=== PATIENT | male | born 1965 | race Caucasian/White ===

== ENCOUNTER 2017-01-19 08:05 | Emergency (ER) | payer MEDICARE, BC ==
[~2017-01-19] VITALS: Ht 170.2 cm; Wt 81.3 kg
[~2017-01-19 08:05] MED LIST: MEDICAL MARIJUANA
[2017-01-19 08:13] VITALS: Ht 170.2 cm; Wt 81.3 kg
--- NOTE | 2017-01-19 09:42 | RADRPT ---
PROCEDURE: XR Chest. CLINICAL INDICATION: chest pain, cough TECHNIQUE: Single frontal view of the chest was obtained COMPARISON: None FINDINGS: The heart and mediastinum are within normal limits. There is a small right pleural effusion. There is no focal consolidation. There is no pneumothorax. RPTAT: AA IMPRESSION: Small right pleural effusion. .Stanislaw Anthony MD, MD Date Time Electronically viewed and signed by .Stanislaw Anthony MD, MD on 01/19/2017 09:42 .S/
[2017-01-19] MEDS ORDERED: AZIT250T94 PO (11:00)
--- NOTE | 2017-01-19 14:43 | ERD ---
DATE OF SERVICE: HISTORY OF PRESENT ILLNESS: The patient is a 52-year-old male coming in complaining of pain everywh ere. The patient is also complaining of a cough. He states it's ____ productive cough. He has no hemoptysis, no pleuritic chest pain, no fevers. He has a mild sore throat and runny nose. He has h ad no fevers at home but states he has been "feeling hot." He has not checked if it's fever. He dominguez s no sick contacts. PAST MEDICAL HISTORY: Denies medical problems. ALLERGIES TO MEDICATION: DENIES. SURGICAL HISTORY: Denies. SOCIAL HISTORY: Smokes half pack of cigarettes a day. REVIEW OF SYSTEMS: A 12-point review of systems was done. Refer to HPI for positives, all other sy stems negative. PHYSICAL EXAMINATION: VITAL SIGNS: Temperature 97.1, pulse 88, blood pressure is 142/96, respiratory 16, O2 saturation 97 % on room air. Pain intensity 9/10. GENERAL: The patient is well appearing, well nourished. No acute distress. HEART: Regular rate and rhythm. No murmurs, clicks, rubs or gallops. No S3 or S4. CHEST: Clear to auscultation bilaterally. There are no rales, wheezes or rhonchi. HEENT: Atraumatic. Conjunctivae are pink. Pupils equal, round, and reactive to light. There is n o scleral icterus. Tympanic membranes clear bilaterally. Oropharynx clear. No nystagmus or photop hobia. ABDOMEN: Soft, nontender and nondistended. Good bowel sounds. No rebound or guarding. No gross p eritonitis. No gross organomegaly or masses. No Garner sign or McBurney point tenderness. SKIN: There is no apparent rash or petechia. The skin is warm and dry. EMERGENCY ROOM COURSE: The patient had a 1-view chest x-ray done in the ER which showed a small rig ht pleural effusion. DIAGNOSIS: Cough. MEDICAL DECISION MAKING: I have low suspicion for PE. The patient is not tachycardic. He does not have pleuritic chest pain. No hemoptysis. I did not feel there was indication for further workup at this time or CTPA. I have low suspicion for cardiac abnormality, low suspicion for bacterial men ingitis or sepsis, low suspicion for bacterial HEENT infection. The patient's exam is not concernin g. The patient likely has viral cough, but given that he has had productive sputum and smokes, I wi ll give antibiotics. DISCHARGE: The patient is discharged stable. The patient is given prescription for azithromycin, t old to follow up with primary care within 1 to 2 days for re-evaluation. The patient is told if sym ptoms progress or worsen to return to the ER. All other questions answered at time of discharge. D ischarge summary given at time of departure. The patient understood and complied with plan. Dictated By: TATUM AGUAYO for ROBER ZHAO/JOON Conf#: [id number] DID#: [id number]
== END 2017-01-19 11:00 | disposition home or self-care (01) ==
LOC: FTE 08:05
DX: R05 Cough (principal); F17.210 Nicotine dependence, cigarettes, uncomplicated
CPT/HCPCS: 71010

== ENCOUNTER 2017-02-07 18:25 | Emergency (ER) | payer MEDICARE, BC ==
[~2017-02-07] VITALS: Wt 80.5 kg
[~2017-02-07 18:25] MED LIST changes: +AZIT250T94 PO
[2017-02-07] MEDS ORDERED: ALBUTEROL 0.5% (NEB) 2.5 MG/0.5 ML AMP INH STA (20:38)
[2017-02-07] MEDS ORDERED: ALBU8.5H3 INH (20:41)
[2017-02-07] MEDS ORDERED: AZIT500T3 PO (20:41)
--- NOTE | 2017-02-07 21:19 | RADRPT ---
PROCEDURE: XR Chest. CLINICAL INDICATION: Shortness of breath. TECHNIQUE: Single frontal view. COMPARISON: 01/19/2017. FINDINGS: The lungs are clear. The heart size is normal. There is a small right pleural effusion. There is no left pleural effusion. There is no pneumothorax. IMPRESSION: 1. Small right pleural effusion. 2. Otherwise normal chest radiograph. RPTAT: QQ .Kian Mckeon MD, MD Date Time Electronically viewed and signed by .Kian Mckeon MD, MD on 02/07/2017 21:19 .R/
--- NOTE | 2017-02-07 22:42 | ERD ---
ER Documentation Chief Complaint Date/Time DATE: 02/07/17 TIME: 22:40 Chief Complaint cough HPI 52-year-old homeless tobacco smoker presents with cough 3 weeks. He denies recent imaging or antibiotic therapy. Patient denies fevers or chills, no chest pain or shortness of breath, no calf or leg swelling, no vomiting or diarrhea. Patient denies abdominal pain. ROS All systems reviewed and are negative except as per history of present illness. Medications Home Meds Active Scripts Azithromycin* (Zithromax*) 500 Mg Tablet, 500 MG PO DAILY for 5 Days, TAB Prov:SOBEIDA BACA MD 02/07/17 Albuterol Sulfate* (Proair HFA*) 8.5 Gm Hfa.aer.ad, 2 PUFF INH Q6H Y for WHEEZING AND SOB, #1 INHALER Prov:SOBEIDA BACA MD 02/07/17 Azithromycin* (Zithromax*) 250 Mg Tablet, 250 MG PO .ZPACK DIRECTED, #6 TAB TAKE 500 MG (2 TABS) THE FIRST DAY THEN 250 MG (1 TAB) DAYS 2-5 Prov:ANA WATKINS PA-C 01/19/17 Reported Medications [Medical Marijuana] No Conflict Check 10/23/10 Allergies Allergies: Coded Allergies: No Known Drug Allergies (Verified Allergy, Mild, 10/23/10) PMhx/Soc Early COPD and tobacco smoke Medical and Surgical Hx: pt denies Medical Hx History of Surgery: Yes (1980 CORNER OF RIGHT LUNG REMOVED S/P INHALING A WOODEN SCREW) Anesthesia Reaction: No Hx Neurological Disorder: No Hx Respiratory Disorders: No Hx Cardiac Disorders: No Hx Psychiatric Problems: Yes (ADHD PER PT) Hx Miscellaneous Medical Probl: No Hx Alcohol Use: Yes Hx Substance Use: Yes Hx Tobacco Use: Yes Smoking Status: Never smoker FmHx Family History: No diabetes Physical Exam Vitals Vital Signs Date Time Temp Pulse Resp B/P Pulse Ox O2 Delivery O2 Flow Rate FiO2 02/07/17 21:18 86 22 97 21 02/07/17 19:27 98.4 79 20 165/92 97 Physical Exam GENERAL: Well-developed, well-nourished, well-hydrated, in no apparent distress , looks nontoxic in appearance HEENT: Moist mucous membranes, pink conjunctiva, no cervical spine tenderness or step-off deformities, no goiter, no jaundice or icterus, extraocular movements intact without pain. No submandibular induration, and no pharyngeal erythema NEURO: Alert and oriented 3, cranial nerves II through XII intact bilaterally, pupils equal round reactive to light, no focal deficits or facial asymmetry, sensation intact distally Strength 5/5 in upper and lower extremities bilaterally CARDIAC: Regular rate and rhythm, no murmurs rubs or gallops LUNGS: Clear bilaterally no wheezing crackles or stridor ABDOMEN: Soft nontender, no guarding, no rigidity, no rebound, no psoas sign no obturator sign. Normoactive bowel sounds SKIN: Warm and dry to touch, no abrasions, contusions, or hematomas, no lacerations, no ecchymosis, no target lesions, and without ulcers EXTREMITIES: No clubbing cyanosis or edema, calves are bilaterally symmetrical, no Homans sign, no popliteal cord sign. Distal pulses equal and bilateral PSYCH: Normal affect without agitation or irritability Results 24 hrs Current Medications Medications (Trade) Dose Ordered Sig/Conor Route PRN Reason Start Time Stop Time Status Last Admin Dose Admin Albuterol (Proventil 0.5% (Neb)) 5 mg ONCE STAT INH 02/07/17 20:38 02/07/17 20:39 DC 02/07/17 21:17 Procedures/MDM Chest X-ray 1V Interpreted by me: Soft Tissue: No acute abnormalities Bones: No acute abnormalities Mediastinum/Cardiac Silhouette/Lungs: No acute abnormalities I administered albuterol 5 mg via nebulizer with good effect. For half minutes of tobacco cessation counseling was provided to this patient. Differential diagnoses considered, included but not limited to acute coronary syndrome, pulmonary embolism, aortic dissection, abdominal aortic aneurysm, sepsis, stroke, meningitis, encephalitis, pneumonia, appendicitis, cholecystitis , bowel obstruction, pyelonephritis, nephrolithiasis, cystitis, as well as metabolic, hematologic, and electrolyte abnormalities. As well as abscess, cellulitis, fractures, and dislocations. Patient feels much better at this time, and vital signs are normal, symptoms have improved. I did give strict instructions to return to the ED if symptoms continue or worsen, patient will otherwise follow-up with primary care physician. Patient understood instructions and agreed to plan. Departure Diagnosis: Primary Impression: Bronchitis Condition: Good Patient Instructions: Bronchitis With Wheezing (Adult) SOBEIDA BACA MD Feb 07, 2017 22:42
[2017-02-07 23:30] VITALS: BP 160/90; PULSE 80; RESP 20; TEMP 98.4
== END 2017-02-07 23:30 | disposition home or self-care (01) ==
LOC: FTE 18:25
DX: J20.9 Acute bronchitis, unspecified (principal); F17.210 Nicotine dependence, cigarettes, uncomplicated
CPT/HCPCS: 71010; 94644

== ENCOUNTER 2017-03-10 13:00 | Day surgery (SDC) | payer MEDICARE, BC ==
[~2017-03-10 13:00] MED LIST changes: +ALBU8.5H3 INH; +AZIT500T3 PO
== END 2017-03-10 15:15 | disposition home or self-care (01) ==
LOC: GIL 13:00
PROVIDERS: ATTEND Internal Medicine Gastroenterology
DX: Z12.11 Encounter for screening for malignant neoplasm of colon (principal); Z53.9 Procedure and treatment not carried out, unspecified reason

== ENCOUNTER 2017-04-05 06:55 | Emergency (ER) | payer MEDICARE, BC ==
[~2017-04-05] VITALS: Ht 170.2 cm; Wt 75.0 kg
[2017-04-05 07:01] VITALS: Ht 170.2 cm; Wt 75.0 kg
[2017-04-05] MEDS ORDERED: LIDOCAINE/MYLANTA 40 ML BTL PO STA (07:37)
[2017-04-05 07:53] LABS: ADD SCAN DIFF NO
[2017-04-05 08:00] LABS: BASOPHIL # 0.1 10^3/ul (0.0-0.1); BASOPHILS % 0.9 % (0.0-2.0); EOSINOPHILS # 0.2 10^3/ul (0.0-0.5); EOSINOPHILS % 2.5 % (0.0-7.0); HEMATOCRIT 51.6 % (42.0-52.0); HEMOGLOBIN 16.9 g/dl (14.0-18.0); LYMPHOCYTES # 1.1 10^3/ul (0.8-2.9); LYMPHOCYTES % 15.5 % (15.0-51.0); MEAN CORPUSCULAR HEMOGLOBIN 29.9 pg (29.0-33.0); MEAN CORPUSCULAR HGB CONC 32.8 g/dl (32.0-37.0); MEAN CORPUSCULAR VOLUME 91.3 fl (82.0-101.0); MEAN PLATELET VOLUME 9.9 fl (7.4-10.4); MONOCYTE # 0.6 10^3/ul (0.3-0.9); MONOCYTES % 9.1 % (0.0-11.0); NEUTROPHIL # 4.9 10^3/ul (1.6-7.5); NEUTROPHILS % 71.7 % (39.0-77.0); PLATELET COUNT 222 10^3/UL (140-415); RED BLOOD COUNT 5.65 10^6/ul (4.70-6.10); RED CELL DISTRIBUTION WIDTH 12.4 % (11.5-14.5); WHITE BLOOD COUNT 6.8 10^3/ul (4.8-10.8)
[2017-04-05] MEDS ORDERED: PANTOPRAZOLE (EC) 40 MG TAB PO ONE (08:00)
[2017-04-05 08:14] LABS: ALBUMIN 3.3 g/dl (3.3-4.9)
[2017-04-05 08:15] LABS: POTASSIUM 3.7 mmol/L (3.5-5.1)
--- NOTE | 2017-04-05 08:16 | RADRPT ---
PROCEDURE: Abdominal Ultrasound (right upper quadrant). CLINICAL INDICATION: Abdominal pain TECHNIQUE: Multiple real-time longitudinal and transverse images of the right upper quadrant of th e abdomen were acquired utilizing a curved array transducer. Images were reviewed on a high-resoluti on PACS workstation. COMPARISON: None FINDINGS: The liver is normal in size and echogenicity. No focal masses are identified. There is no evidenc e of intra or extrahepatic ductal dilatation. The common bile duct measures 4.5 mm in diameter. No gallstones or gallbladder wall thickening is seen. The visualized portions of the pancreas are unremarkable with obscuration of the tail of the pancrea s. No free fluid is identified. There is no evidence of right hydronephrosis or renal calcification. The right kidney measures 10.9 cm in length. The visualized portions of the aorta and inferior vena cava are within normal limits. IMPRESSION: 1. Unremarkable right upper quadrant ultrasound. RPTAT: HJBF .Edis Walker MD, MD Date Time Electronically viewed and signed by .Edis Walker MD, MD on 04/05/2017 08:16 .B/
[2017-04-05 08:17] LABS: ALBUMIN/GLOBULIN RATIO 1.17; BILIRUBIN,INDIRECT 0.5 mg/dl (0-1.1); BILIRUBIN,TOTAL 0.5 mg/dl (0.2-1.3); CREATININE 0.82 mg/dl (0.61-1.24); TOTAL PROTEIN 6.1 g/dl (6.1-8.1)
[2017-04-05 08:18] LABS: CALCIUM 8.8 mg/dl (8.4-10.2)
[2017-04-05] MEDS ORDERED: PANT40TA3 PO (08:38)
[2017-04-05 08:39] VITALS: BP 133/79; PULSE 79; RESP 19
--- NOTE | 2017-04-05 08:46 | ERD ---
ER Documentation Chief Complaint Date/Time DATE: 04/05/17 TIME: 08:44 Chief Complaint C/O ABD PAIN HPI Patient is a 52-year-old male with ADHD who presents with abdominal pain. He felt lightheaded. The symptoms started yesterday. He feels pain in the middle of the stomach which comes and goes and is sharp in nature. He has had no treatment as of yet. Upon review of old medical records the patient has multiple visits to the ER since 2005. Review of the emergency department information exchange shows visits to see 2 separate emergency departments. ROS All systems reviewed and are negative except as per history of present illness. Medications Home Meds Active Scripts Pantoprazole* (Protonix*) 40 Mg Tablet.dr, 40 MG PO DAILY, #20 TAB Prov:ROBER FARRELL MD 04/05/17 Azithromycin* (Zithromax*) 500 Mg Tablet, 500 MG PO DAILY for 5 Days, TAB Prov:SOBEIDA BACA MD 02/07/17 Albuterol Sulfate* (Proair HFA*) 8.5 Gm Hfa.aer.ad, 2 PUFF INH Q6H Y for WHEEZING AND SOB, #1 INHALER Prov:SOBEIDA BACA MD 02/07/17 Azithromycin* (Zithromax*) 250 Mg Tablet, 250 MG PO .ZPACK DIRECTED, #6 TAB TAKE 500 MG (2 TABS) THE FIRST DAY THEN 250 MG (1 TAB) DAYS 2-5 Prov:ANA WATKINS PA-C 01/19/17 Reported Medications [Medical Marijuana] No Conflict Check 10/23/10 Allergies Allergies: Coded Allergies: No Known Drug Allergies (Verified Allergy, Mild, 10/23/10) PMhx/Soc History of Surgery: Yes (1980 CORNER OF RIGHT LUNG REMOVED S/P INHALING A WOODEN SCREW) Anesthesia Reaction: No Hx Neurological Disorder: No Hx Respiratory Disorders: No Hx Cardiac Disorders: No Hx Psychiatric Problems: Yes (ADHD PER PT) Hx Miscellaneous Medical Probl: No Hx Alcohol Use: Yes Hx Substance Use: Yes Hx Tobacco Use: Yes Smoking Status: Current every day smoker FmHx Family History: No diabetes Physical Exam Vitals Vital Signs Date Time Temp Pulse Resp B/P Pulse Ox O2 Delivery O2 Flow Rate FiO2 04/05/17 08:39 79 19 133/79 100 04/05/17 07:01 97.1 100 19 127/90 100 Physical Exam Const: Mild distress Head: Atraumatic Eyes: Normal Conjunctiva ENT: Normal External Ears, Nose and Mouth. Neck: Full range of motion..~ No meningismus. Resp: Clear to auscultation bilaterally Cardio: Regular rate and rhythm, no murmurs Abd: Soft, epigastric tenderness to palpation without rebound or guarding Skin: No petechiae or rashes Back: No midline or flank tenderness Ext: No cyanosis, or edema Neur: Awake and alert Psych: Normal Mood and Affect Result Diagram: 04/05/1774204/05/17742 Results 24 hrs Laboratory Tests Test 04/05/17 07:43 White Blood Count 6.810^3/ul Red Blood Count 5.6510^6/ul Hemoglobin 16.9g/dl Hematocrit 51.6% Mean Corpuscular Volume 91.3fl Mean Corpuscular Hemoglobin 29.9pg Mean Corpuscular Hemoglobin Concent 32.8g/dl Red Cell Distribution Width 12.4% Platelet Count 44280^3/UL Mean Platelet Volume 9.9fl Neutrophils % 71.7% Lymphocytes % 15.5% Monocytes % 9.1% Eosinophils % 2.5% Basophils % 0.9% Nucleated Red Blood Cells % 0.0/100WBC Neutrophils # 4.910^3/ul Lymphocytes # 1.110^3/ul Monocytes # 0.610^3/ul Eosinophils # 0.210^3/ul Basophils # 0.110^3/ul Nucleated Red Blood Cells # 0.010^3/ul Sodium Level 140mmol/L Potassium Level 3.7mmol/L Chloride Level 104mmol/L Carbon Dioxide Level 29mmol/L Anion Gap 11 Blood Urea Nitrogen 10mg/dl Creatinine 0.82mg/dl Glucose Level 95mg/dl Calcium Level 8.8mg/dl Total Bilirubin 0.5mg/dl Direct Bilirubin 0.00mg/dl Indirect Bilirubin 0.5mg/dl Aspartate Amino Transf (AST/SGOT) 22IU/L Alanine Aminotransferase (ALT/SGPT) 34IU/L Alkaline Phosphatase 79IU/L Total Protein 6.1g/dl Albumin 3.3g/dl Globulin 2.80g/dl Albumin/Globulin Ratio 1.17 Lipase 45U/L Current Medications Medications (Trade) Dose Ordered Sig/Conor Route PRN Reason Start Time Stop Time Status Last Admin Dose Admin Miscellaneous Medication (Gi Cocktail (2)) 40 ml ONCE STAT PO 04/05/17 07:37 04/05/17 07:38 DC 04/05/17 08:16 Pantoprazole (Protonix Tab) 40 mg ONCE ONCE PO 04/05/17 08:00 04/05/17 08:01 DC 04/05/17 08:16 Procedures/MDM Ultrasound negative per radiology. Smoking Cessation Therapy: Pt. was lectured for greater than 3 minutes on the health risks of continued smoking and the benefits of cessation. Patient is a 52-year-old male with ADHD who presents with abdominal pain. His laboratory studies are normal including normal white count, LFTs, and lipase. Ultrasound was negative for signs of cholecystitis. At this point I doubt cholecystitis, pancreatitis, appendicitis, or bowel obstruction. I believe outpatient management is appropriate. The patient was given GI cocktail and Protonix. He will be given a prescription for Protonix to reduce acid in the stomach. He will need to follow-up closely with his primary doctor within 24 hours. Copies of his laboratory studies and ultrasound report were given to him prior to discharge. Departure Diagnosis: Primary Impression: Abdominal pain Abdominal location: epigastric Qualified Code: R10.13 - Epigastric pain Condition: Fair Patient Instructions: Abdominal Pain Referrals: Your doctor Additional Instructions: FOLLOW UP WITH YOUR PRIMARY CARE PHYSICIAN TOMORROW.Return to this facility if you are not improving as expected. ROBER FARRELL MD April 05, 2017 08:46
== END 2017-04-05 08:42 | disposition home or self-care (01) ==
LOC: E/R 06:55
DX: R10.13 Epigastric pain (principal); F17.210 Nicotine dependence, cigarettes, uncomplicated
CPT/HCPCS: 36415; 76705; 80053; 83690; 85025

== ENCOUNTER 2017-04-12 13:28 | Day surgery (SDC) | payer MEDICARE, BC ==
[~2017-04-12] VITALS: Ht 172.7 cm; Wt 69.0 kg
[~2017-04-12 13:28] MED LIST changes: +PANT40TA3 PO
[2017-04-12 15:13] VITALS: Ht 172.7 cm; Wt 69.0 kg
[2017-04-12 15:40] VITALS: BP 131/100; PULSE 90; RESP 20
[2017-04-12] MEDS ORDERED: LIDOCAINE 2% (SDV) 5 ML INJ ONE (16:02)
[2017-04-12] MEDS ORDERED: MIDAZOLAM 1 MG/ML 2 ML INJ ONE (16:02)
[2017-04-12] MEDS ORDERED: PROPOFOL 20 ML ONE (16:02)
[2017-04-12 16:42] VITALS: BP 152/98; PULSE 82; RESP 24
[2017-04-12 17:15] VITALS: BP 160/95; PULSE 90; RESP 21
--- NOTE | 2017-04-13 03:28 | GILP ---
DATE OF PROCEDURE: 04/12/2017 PROCEDURE: Colonoscopy with biopsies. BRIEF HISTORY AND INDICATIONS: The patient is being evaluated for colorectal cancer screening. PREMEDICATION: Monitored anesthesia care by anesthesiologist. SURGEON: Ryley Thomas MD INSTRUMENT USED: Olympus colonoscope. PREPARATION: Adequate. TECHNIQUE: After informed consent, with the patient/relatives understanding the procedure, its indic ations potential risks and complications, including but not limited to: allergic reaction, bleeding, perforation, infection, missed lesions and after all pertinent questions were answered to the patie nt's satisfaction, the patient/relatives signed the witnessed informed consent. Following this, premedication was administered slowly IV push by under careful cardiovascular and re spiratory monitoring with pulse oximetry, automatic blood pressure and court monitor. Once the sedativ e effect was achieved, the patient was placed in the left lateral decubitus position, digital rectal examination was performed. The colonoscope was then introduced and advanced under visual control th roughout all segments of the colon including: the rectum, sigmoid, descending colon, splenic flexure , transverse colon, hepatic flexure, ascending colon and finally reaching the cecum which was clearl y identified by transillumination, finger indentation and the ileocecal valve. Careful examination o f the mucosa of the lower gastrointestinal tract both on insertion as well as withdrawal of the inst rument disclosed the following findings: Rectal Examination: No evidence of perirectal disease, no masses. Colonic Mucosa: There is a prominent fold in the sigmoid colon which appears to be erythematous and not typical polypoid tissue. Biopsies were obtained. The remainder of the colonic mucosa is unremarkable throughout. The ileocecal valve was clearly wendy ntified and appears unremarkable. The instrument was withdrawn, reexamining the mucosa in detail. No additional abnormalities were no angelia with the exception of moderate size internal hemorrhoids. The patient tolerated the procedure well and was transferred out of the Endoscopy Suite awake and in good condition to continue recovery under observation. IMPRESSION: 1. Prominent fold versus polyp in the sigmoid colon. Biopsies obtained. 2. Moderate sized internal hemorrhoids. 3. Otherwise, normal colonoscopy to cecum. PLAN: The patient will follow up as an outpatient. Pathology will be reviewed as soon as available , and further recommendation will depend on his clinical course as well as review of biopsies. Dictated By: RYLEY THOMAS MS/JOON Conf#: [id number] [facility]#: [id number]
== END 2017-04-12 19:39 | disposition home or self-care (01) ==
LOC: GIL 13:28
PROVIDERS: ATTEND Internal Medicine Gastroenterology
DX: Z12.11 Encounter for screening for malignant neoplasm of colon (principal); D12.5 Benign neoplasm of sigmoid colon; F17.200 Nicotine dependence, unspecified, uncomplicated
CPT/HCPCS: 45380; 88305; J2250

== ENCOUNTER 2017-04-27 09:19 | Emergency (ER) | payer MEDICARE, BC ==
[~2017-04-27] VITALS: Wt 70.0 kg
[~2017-04-27 09:19] MED LIST changes: -AZIT250T94 PO; -AZIT500T3 PO; -PANT40TA3 PO
[2017-04-27] MEDS ORDERED: traMADol 50 MG TAB PO ONE (10:00)
--- NOTE | 2017-04-27 10:18 | ERD ---
ER Documentation Chief Complaint Date/Time DATE: 04/27/17 TIME: 10:16 Chief Complaint RIB PAIN S/P GLF 10 DAYS AGO, NO KO HPI 52-year-old male, transient, comes emergency department with bilateral lower rib pain after a ground-level fall about 10 days ago. Patient states that he slipped in the shower and fell forward onto the bathtub. He has achy pain, diffuse on the chest wall, states that it is sharp pain. He has not tried anything for pain so far. He has not had any shortness of breath. ROS All systems reviewed and are negative except as per history of present illness. Medications Home Meds Active Scripts Hydrocodone/Acetaminophen ([place] 5-325 Tablet) 1 Each Tablet, 1 TAB PO Q6H Y for PAIN, #15 TAB Prov:CATALINA MENENDEZ PA-C 04/27/17 Tramadol HCl (Tramadol HCl) 50 Mg Tablet, 50 MG PO Q4 Y for PAIN, #20 TAB Prov:CATALINA MENENDEZ PA-C 04/27/17 Albuterol Sulfate* (Proair HFA*) 8.5 Gm Hfa.aer.ad, 2 PUFF INH Q6H Y for WHEEZING AND SOB, #1 INHALER Prov:SOBEIDA BACA MD 02/07/17 Reported Medications [Medical Marijuana] No Conflict Check 10/23/10 Allergies Allergies: Coded Allergies: No Known Drug Allergies (Verified Allergy, Mild, 04/12/17) PMhx/Soc History of Surgery: Yes (L HERNIA REPAIR, PARTIAL LOBECTOMY RIGHT LUNG AT 14 YRS OLD) Anesthesia Reaction: No Hx Neurological Disorder: No Hx Respiratory Disorders: Yes (COPD ) Hx Cardiac Disorders: No Hx Psychiatric Problems: Yes (ADHD) Hx Miscellaneous Medical Probl: No Hx Alcohol Use: Yes (YEARLY) Hx Substance Use: Yes (MARIJUANA) Hx Tobacco Use: Yes (DIDNT KNOW HOW MUCH PER DAY) Smoking Status: Current every day smoker Physical Exam Vitals Vital Signs Date Time Temp Pulse Resp B/P Pulse Ox O2 Delivery O2 Flow Rate FiO2 04/27/17 09:25 97.7 85 17 133/95 98 Physical Exam General: Well-developed, well-nourished. The patient appears in no acute distress. HEENT: Head is normocephalic, atraumatic. No scleral icterus. Neck: Supple. Nontender. Lungs: Clear to auscultation. Normal air movement. Diffuse chest wall tenderness on left and right inferior aspect of ribs, greater on the left. No crepitus. No hematomas. Heart: Regular rate and rhythm. S1 and S2 are normal. No murmurs, gallops, or rubs. Abdomen: Soft, nontender, nondistended. Bowel sounds are normoactive. No hepatosplenomegaly. Extremities: No clubbing or cyanosis. Normal pulses. Moving extremities x 4. No weakness. Neurologic: Alert and oriented 3. No focal deficits. Skin: Normal turgor. No rash or lesions. Results 24 hrs Current Medications Medications (Trade) Dose Ordered Sig/Conor Route PRN Reason Start Time Stop Time Status Last Admin Dose Admin Tramadol HCl (Ultram) 50 mg ONCE ONCE PO 04/27/17 10:00 04/27/17 10:01 DC 04/27/17 09:56 PROCEDURE: XR Rib series. CLINICAL INDICATION: Pain status post trauma 1 week ago. TECHNIQUE: Bilateral rib x-rays, 5 views. COMPARISON: Chest x-ray 02/07/2017. FINDINGS: Nondisplaced right anterior fifth, sixth and seventh rib fractures are present. There is a nondisplaced left anterior 7th rib fracture. Mild blunting of the right costophrenic angle is observed and favors sequelae of scarring given the presence of tiny microstaples within the right lung base. There is no evidence of pneumothorax. There is no focal pulmonary parenchymal opacification. IMPRESSION: Bilateral nondisplaced rib fractures, as described above. No visible pneumothoraces. Surgical changes of the right lung base with scarring. RPTAT: HLST .Candy Cantu MD, Date Time Electronically viewed and signed by .Candy Cantu MD, MD on 04/27/2017 11:10 .T/ Procedures/MDM ED course: Patient was given tramadol for pain. MDM: 52-year-old male with a history of a slip and fall comes in with bilateral rib pain, patient has bilateral rib fractures, ribs 5 6 and 7 on the right side that are nondisplaced as well as the left seventh rib. No underlying pneumothorax. Patient has scar tissue from her previous lung injury from a screw when he was 12 years old however no underlying pneumothorax. He does have pain, however he is not in any respiratory distress. I discussed the x- ray findings with my attending physician who agrees that the patient is stable for outpatient management. He will be given tramadol for mild to moderate pain , as well as [place] for severe pain. Departure Diagnosis: Primary Impression: Rib fractures Condition: Good CATALINA MENENDEZ PA-C Apr 27, 2017 10:18
--- NOTE | 2017-04-27 11:10 | RADRPT ---
PROCEDURE: XR Rib series. CLINICAL INDICATION: Pain status post trauma 1 week ago. TECHNIQUE: Bilateral rib x-rays, 5 views. COMPARISON: Chest x-ray 02/07/2017. FINDINGS: Nondisplaced right anterior fifth, sixth and seventh rib fractures are present. There is a nondispl aced left anterior 7th rib fracture. Mild blunting of the right costophrenic angle is observed and favors sequelae of scarring given the presence of tiny microstaples within the right lung base. The re is no evidence of pneumothorax. There is no focal pulmonary parenchymal opacification. IMPRESSION: Bilateral nondisplaced rib fractures, as described above. No visible pneumothoraces. Surgical changes of the right lung base with scarring. RPTAT: HLST .Candy Cantu MD, Date Time Electronically viewed and signed by .Candy Cantu MD, on 04/27/2017 11:10 .T/
[2017-04-27] MEDS ORDERED: TRAM50TA2 PO (11:21)
[2017-04-27] MEDS ORDERED: HYDR-906 PO (11:21)
[2017-04-27 11:30] VITALS: BP 138/79; PULSE 74; RESP 18; TEMP 98
== END 2017-04-27 11:30 | disposition home or self-care (01) ==
LOC: FTE 09:19
DX: S22.43XA Multiple fractures of ribs, bilateral, initial encounter for closed fracture (principal); J44.9 Chronic obstructive pulmonary disease, unspecified; F17.210 Nicotine dependence, cigarettes, uncomplicated; W18.2XXA Fall in (into) shower or empty bathtub, initial encounter; Y92.9 Unspecified place or not applicable
CPT/HCPCS: 71110

== ENCOUNTER 2017-06-08 08:14 | Emergency (ER) | payer MEDICARE, BC ==
[~2017-06-08] VITALS: Wt 59.1 kg
[~2017-06-08 08:14] MED LIST changes: +HYDR-906 PO; +TRAM50TA2 PO
[2017-06-08 08:18] VITALS: Wt 59.1 kg
[2017-06-08] MEDS ORDERED: KETOROLAC 30 MG INJ IM STA (08:44)
[2017-06-08] MEDS ORDERED: IBUP-1542 PO (08:46)
--- NOTE | 2017-06-08 09:06 | RADRPT ---
PROCEDURE: Left Shoulder Series CLINICAL INDICATION: Left shoulder pain TECHNIQUE: 3 views of the left shoulder are available for review. COMPARISON: None available FINDINGS: There is normal mineralization and alignment of the bones of the left shoulder. No fracture or disl ocation is identified. Joint spaces are well maintained. The acromioclavicular joint is grossly un remarkable. The visualized portions of the left chest wall are within normal limits. The soft tissu es are unremarkable. IMPRESSION: 1. Unremarkable left shoulder x-ray series. RPTAT: KK .Edis Walker MD, Date Time Electronically viewed and signed by .Edis Walker MD, on 06/08/2017 09:06 .B/
--- NOTE | 2017-06-08 09:35 | ERD ---
ER Documentation Chief Complaint Date/Time DATE: 06/08/17 TIME: 09:31 Chief Complaint l arm pain x3 days, denies trauma. homeless. sleeping during triage. HPI 52-year-old man complains of 3 days of left shoulder pain, is homeless but denies any trauma, no redness or swelling to the shoulder, no complaints of paresis or paresthesias. Patient denies chest pain or shortness of breath, no cough, no vomiting or diarrhea. ROS All systems reviewed and are negative except as per history of present illness. Medications Home Meds Active Scripts Ibuprofen* (Ibuprofen*) 600 Mg Tablet, 600 MG PO Q8 for PAIN AND/OR INFLAMMATION , #30 TAB Prov:SOBEIDA BACA MD 06/08/17 Hydrocodone/Acetaminophen ([place] 5-325 Tablet) 1 Each Tablet, 1 TAB PO Q6H Y for PAIN, #15 TAB Prov:CATALINA MENENDEZ PA-C 04/27/17 Tramadol HCl (Tramadol HCl) 50 Mg Tablet, 50 MG PO Q4 Y for PAIN, #20 TAB Prov:CATALINA MENENDEZ PA-C 04/27/17 Albuterol Sulfate* (Proair HFA*) 8.5 Gm Hfa.aer.ad, 2 PUFF INH Q6H Y for WHEEZING AND SOB, #1 INHALER Prov:SOBEIDA BACA MD 02/07/17 Reported Medications [Medical Marijuana] No Conflict Check 10/23/10 Allergies Allergies: Coded Allergies: No Known Drug Allergies (Verified Allergy, Mild, 04/12/17) PMhx/Soc None History of Surgery: Yes (L HERNIA REPAIR, PARTIAL LOBECTOMY RIGHT LUNG AT 14 YRS OLD) Anesthesia Reaction: No Hx Neurological Disorder: No Hx Respiratory Disorders: Yes (COPD ) Hx Cardiac Disorders: No Hx Psychiatric Problems: Yes (ADHD) Hx Miscellaneous Medical Probl: No Hx Alcohol Use: Yes (YEARLY) Hx Substance Use: Yes (MARIJUANA) Hx Tobacco Use: Yes (DIDNT KNOW HOW MUCH PER DAY) Smoking Status: Current every day smoker FmHx Family History: No diabetes Physical Exam Vitals Vital Signs Date Time Temp Pulse Resp B/P Pulse Ox O2 Delivery O2 Flow Rate FiO2 06/08/17 08:18 97.4 78 20 115/75 95 Physical Exam GENERAL: Well-developed, well-nourished, appears dehydrated, afebrile HEENT: Dry mucous membranes, pink conjunctiva, no cervical spine tenderness or step-off deformities, no goiter, no jaundice or icterus, extraocular movements intact without pain. No submandibular induration, and no pharyngeal erythema NEURO: Alert and oriented 3, cranial nerves II through XII intact bilaterally, pupils equal round reactive to light, no focal deficits or facial asymmetry, sensation intact distally Strength 5/5 in upper and lower extremities bilaterally CARDIAC: Regular rate and rhythm, no murmurs rubs or gallops LUNGS: Clear bilaterally no wheezing crackles or stridor ABDOMEN: Soft nontender, no guarding, no rigidity, no rebound, no psoas sign no obturator sign. Normoactive bowel sounds SKIN: Warm and dry to touch, no abrasions, contusions, or hematomas, no lacerations, no ecchymosis, no target lesions, and without ulcers EXTREMITIES: No clubbing cyanosis or edema, calves are bilaterally symmetrical, no Homans sign, no popliteal cord sign. Distal pulses equal and bilateral PSYCH: Normal affect without agitation or irritability Results 24 hrs Current Medications Medications (Trade) Dose Ordered Sig/Conor Route PRN Reason Start Time Stop Time Status Last Admin Dose Admin Ketorolac Tromethamine (Toradol) 30 mg ONCE STAT IM 06/08/17 08:44 06/08/17 08:48 DC 06/08/17 09:22 Procedures/MDM Patient was given ice cold water and juice here in the emergency department for oral rehydration, and Toradol 30 mg intramuscular injection for pain control. One AP view of the chest performed, read by me reveals no acute infiltrates, normal mediastinum, sharp costophrenic and cardiac borders, no air under the diaphragm. Otherwise unremarkable chest x-ray. Differential diagnoses considered, included but not limited to acute coronary syndrome, pulmonary embolism, aortic dissection, abdominal aortic aneurysm, sepsis, stroke, septic arthritis, pneumonia, appendicitis, cholecystitis, bowel obstruction, pyelonephritis, nephrolithiasis, cystitis, as well as metabolic, hematologic, and electrolyte abnormalities. Abscesses, cellulitis, fractures, and dislocations were also considered. Patient feels much better at this time, and vital signs are normal, symptoms have improved. I did give strict instructions to return to the ED if symptoms continue or worsen, patient will otherwise follow-up with primary care physician. Patient understood instructions and agreed to plan. Disclaimer: Inadvertent spelling and grammatical errors are likely due to EHR/ dictation software use and do not reflect on the overall quality of patient care. Also, please note that the electronic time recorded on this note does not necessarily reflect the actual time of the patient encounter. Departure Diagnosis: Primary Impression: Dehydration Additional Impression: Shoulder sprain Encounter type: initial encounter Shoulder sprain type: unspecified sprain Laterality: left Qualified Code: S43.402A - Sprain of left shoulder, unspecified shoulder sprain type, initial encounter Condition: Good Patient Instructions: Dehydration, Shoulder Sprain Referrals: ROSEMARY HUMPHRIES (PCP) SOBEIDA BACA MD Jun 08, 2017 09:34
[2017-06-08 09:47] VITALS: BP 133/70; PULSE 77; RESP 16
== END 2017-06-08 10:07 | disposition home or self-care (01) ==
LOC: E/R 08:14
DX: E86.0 Dehydration (principal); S43.402A Unspecified sprain of left shoulder joint, initial encounter; J44.9 Chronic obstructive pulmonary disease, unspecified; F17.210 Nicotine dependence, cigarettes, uncomplicated; X58.XXXA Exposure to other specified factors, initial encounter; Y92.9 Unspecified place or not applicable
CPT/HCPCS: 73030; 96372; 99284; J1885

== ENCOUNTER 2017-06-27 02:39 | Inpatient (IN) | payer MEDICARE, BC ==
[~2017-06-27] VITALS: Ht 175.3 cm; Wt 66.2 kg
[~2017-06-27 02:39] MED LIST changes: +IBUP-1542 PO
[2017-06-27 02:43] VITALS: Ht 175.3 cm; Wt 66.2 kg
[2017-06-27] MEDS ORDERED: METHYLPREDNISOLONE 125 MG INJ IV STA (02:54)
[2017-06-27] MEDS ORDERED: IPRATROPIUM (NEB) 0.5 MG/2.5 ML AMP INH STA (02:54)
[2017-06-27] MEDS ORDERED: ALBUTEROL 0.5% (NEB) 2.5 MG/0.5 ML AMP INH STA (02:54)
--- NOTE | 2017-06-27 03:37 | RADRPT ---
PROCEDURE: XR Chest. CLINICAL INDICATION: Shortness of breath. TECHNIQUE: AP Portable chest. COMPARISON: No pertinent prior examinations were submitted for comparison. FINDINGS: The cardiomediastinal silhouette is normal. The lungs are clear. The osseous structures are unrema rkable. IMPRESSION: No acute findings. RPTAT: HIKT .Murray Ochoa MD, MD Date Time Electronically viewed and signed by .Murray Ochoa MD, MD on 06/27/2017 03:37 .T/
[2017-06-27] MEDS ORDERED: GABA300C16 PO (03:46)
[2017-06-27 04:15] LABS: INR 1.01; PROTIME 13.3 Sec (12.2-14.2)
[2017-06-27 04:16] LABS: PARTIAL THROMBOPLASTIN TIME 31.7 Sec (25.0-35.0)
[2017-06-27 04:30] LABS: BASOPHILS % 0.3 % (0.0-2.0); EOSINOPHILS % 0.2 % (0.0-7.0); HEMATOCRIT 50.6 % (42.0-52.0); HEMOGLOBIN 16.1 g/dl (14.0-18.0); LYMPHOCYTES # 0.7 10^3/ul (0.8-2.9); LYMPHOCYTES % 5.2 % (15.0-51.0); MEAN CORPUSCULAR HEMOGLOBIN 29.7 pg (29.0-33.0); MEAN CORPUSCULAR HGB CONC 31.8 g/dl (32.0-37.0); MEAN CORPUSCULAR VOLUME 93.4 fl (82.0-101.0); MONOCYTES % 7.1 % (0.0-11.0); NEUTROPHIL # 12.1 10^3/ul (1.6-7.5); NEUTROPHILS % 86.8 % (39.0-77.0); PLATELET COUNT 235 10^3/UL (140-415); RED BLOOD COUNT 5.42 10^6/ul (4.70-6.10); RED CELL DISTRIBUTION WIDTH 12.9 % (11.5-14.5)
[2017-06-27 05:08] LABS: ALBUMIN 4.6 g/dl (3.3-4.9); ALBUMIN/GLOBULIN RATIO 1.53; BILIRUBIN,INDIRECT 0.6 mg/dl (0-1.1); BILIRUBIN,TOTAL 0.6 mg/dl (0.2-1.3); CALCIUM 9.6 mg/dl (8.4-10.2); CREATININE 0.82 mg/dl (0.61-1.24); POTASSIUM 4.6 mmol/L (3.5-5.1); TOTAL PROTEIN 7.6 g/dl (6.1-8.1)
[2017-06-27 05:19] LABS: TROPONIN-I 0.031 ng/ml (0.00-0.12)
--- NOTE | 2017-06-27 05:24 | ERA ---
ER Documentation Chief Complaint Date/Time DATE: 06/27/17 TIME: 05:23 Chief Complaint weakness x 1month, chronic cough w/ sob HPI This is a very pleasant 52-year-old male comes in because of increasing shortness of breath over the past 3-4 days. Also complains generalized weakness over the past few weeks. No fevers no chills. Mild cough that is productive. No nausea no vomiting. No other current issues. ROS All systems reviewed and are negative except as per history of present illness. Medications Home Meds Active Scripts Ibuprofen* (Ibuprofen*) 600 Mg Tablet, 600 MG PO Q8 for PAIN AND/OR INFLAMMATION , #30 TAB Prov:SOBEIDA BACA MD 06/08/17 Hydrocodone/Acetaminophen ([place] 5-325 Tablet) 1 Each Tablet, 1 TAB PO Q6H Y for PAIN, #15 TAB Prov:CATALINA MENENDEZ PA-C 04/27/17 Tramadol HCl (Tramadol HCl) 50 Mg Tablet, 50 MG PO Q4 Y for PAIN, #20 TAB Prov:CATALINA MENENDEZ PA-C 04/27/17 Albuterol Sulfate* (Proair HFA*) 8.5 Gm Hfa.aer.ad, 2 PUFF INH Q6H Y for WHEEZING AND SOB, #1 INHALER Prov:SOBEIDA BACA MD 02/07/17 Reported Medications Gabapentin* (Gabapentin*) 300 Mg Capsule, 300 MG PO BID, #60 CAP 06/27/17 Discontinued Reported Medications [Medical Marijuana] No Conflict Check 10/23/10 Allergies Allergies: Coded Allergies: No Known Drug Allergies (Verified Allergy, Mild, 04/12/17) PMhx/Soc History of Surgery: Yes (L HERNIA REPAIR, PARTIAL LOBECTOMY RIGHT LUNG AT 14 YRS OLD) Anesthesia Reaction: No Hx Neurological Disorder: No Hx Respiratory Disorders: Yes (COPD ) Hx Cardiac Disorders: No Hx Psychiatric Problems: Yes (ADHD) Hx Miscellaneous Medical Probl: No Hx Alcohol Use: Yes (YEARLY) Hx Substance Use: Yes (MARIJUANA, METH) Hx Tobacco Use: Yes (DIDNT KNOW HOW MUCH PER DAY) Smoking Status: Current every day smoker Physical Exam Vitals Vital Signs Date Time Temp Pulse Resp B/P Pulse Ox O2 Delivery O2 Flow Rate FiO2 06/27/17 04:27 98.8 79 20 168/102 100 10.0 06/27/17 03:31 Simple Mask 5.0 06/27/17 03:31 Simple Mask 5 06/27/17 03:08 99 10.0 06/27/17 03:08 103 22 99 Simple Mask 10.0 06/27/17 02:43 97.8 104 20 134/89 92 Physical Exam Const: [] Head: Atraumatic Eyes: Normal Conjunctiva ENT: Normal External Ears, Nose and Mouth. Neck: Full range of motion..~ No meningismus. Resp: Clear to auscultation bilaterally Cardio: Regular rate and rhythm, no murmurs Abd: Soft, non tender, non distended. Normal bowel sounds Skin: No petechiae or rashes Back: No midline or flank tenderness Ext: No cyanosis, or edema Neur: Awake and alert Psych: Normal Mood and Affect Result Diagram: 06/27/17 0305 06/27/17 0305 Results 24 hrs Laboratory Tests Test 06/27/17 03:05 White Blood Count 14.010^3/ul Red Blood Count 5.4210^6/ul Hemoglobin 16.1g/dl Hematocrit 50.6% Mean Corpuscular Volume 93.4fl Mean Corpuscular Hemoglobin 29.7pg Mean Corpuscular Hemoglobin Concent 31.8g/dl Red Cell Distribution Width 12.9% Platelet Count 59374^3/UL Mean Platelet Volume 11.0fl Neutrophils % 86.8% Lymphocytes % 5.2% Monocytes % 7.1% Eosinophils % 0.2% Basophils % 0.3% Nucleated Red Blood Cells % 0.0/100WBC Neutrophils # 12.110^3/ul Lymphocytes # 0.710^3/ul Monocytes # 1.010^3/ul Eosinophils # 0.010^3/ul Basophils # 0.010^3/ul Nucleated Red Blood Cells # 0.010^3/ul Prothrombin Time 13.3Sec Prothrombin Time Ratio 1.0 INR International Normalized Ratio 1.01 Activated Partial Thromboplast Time 31.7Sec Sodium Level 147mmol/L Potassium Level 4.6mmol/L Chloride Level 103mmol/L Carbon Dioxide Level 28mmol/L Anion Gap 21 Blood Urea Nitrogen 14mg/dl Creatinine 0.82mg/dl Glucose Level 123mg/dl Calcium Level 9.6mg/dl Total Bilirubin 0.6mg/dl Direct Bilirubin 0.00mg/dl Indirect Bilirubin 0.6mg/dl Aspartate Amino Transf (AST/SGOT) 24IU/L Alanine Aminotransferase (ALT/SGPT) 33IU/L Alkaline Phosphatase 118IU/L Troponin I Pending B-Type Natriuretic Peptide Pending Total Protein 7.6g/dl Albumin 4.6g/dl Globulin 3.00g/dl Albumin/Globulin Ratio 1.53 Current Medications Medications (Trade) Dose Ordered Sig/Conor Route PRN Reason Start Time Stop Time Status Last Admin Dose Admin Albuterol (Proventil 0.5% (Neb)) 10 mg ONCE STAT INH 06/27/17 02:54 06/27/17 02:56 DC 06/27/17 03:06 Ipratropium Magnet (Atrovent 0.02% (Neb)) 1 mg ONCE STAT INH 06/27/17 02:54 06/27/17 02:56 DC 06/27/17 03:06 Methylprednisolone Sodium Succinate (Solu-Medrol) 125 mg ONCE STAT IV 06/27/17 02:54 06/27/17 02:56 DC 06/27/17 03:26 Procedures/MDM EKG: Rate/Rhythm: [Normal Sinus Rhythm] QRS, ST, T-waves: [No changes consistent w/ acute ischemia] Impression: [No evidence of ischemia or arrhythmia] Chest X-ray 1V Interpreted by me: Soft Tissue: No acute abnormalities Bones: No acute abnormalities Mediastinum/Cardiac Silhouette/Lungs: [No acute abnormalities] Patient's respiratory symptoms have not responded to normal outpatient therapy and will require inpatient workup, monitoring, and treatment. Accepting Care Team: Current data and ongoing care discussed. Time: 5:20 AM Primary Provider: Hospitalist Consulting: [XOXOXO] Outstanding Data: none Departure Diagnosis: Primary Impression: COPD (chronic obstructive pulmonary disease) with emphysema Qualified Code: J43.9 - Pulmonary emphysema, unspecified emphysema type Condition: Serious HERMILA STOKES Jun 27, 2017 05:24
[2017-06-27 07:21] VITALS: PULSE 90; TEMP 98.2
[2017-06-27 07:55] VITALS: BP 124/61
[2017-06-27 08:08] LABS: AADO2 Arterial 200.2 mmHg (7.0-24.0); Arterial Base Excess -0.8 mmol/L (-3.0-3); Arterial COHb 1.2 % (0.0-3.0); Arterial Fraction of Oxyhgb 95.9 % (93.0-99.0); Arterial HCO3 25.1 mmol/L (22.0-26.0); Arterial MetHb 0.3 % (0.0-1.5); Arterial Total Hemglobin 15.7 g/dl (12.0-18.0); MODE MASK - SIMPLE
[2017-06-27] MEDS ORDERED: NACL 0.9% 3 ML SYG IV SCH (09:00)
[2017-06-27] MEDS ORDERED: HYDROCODONE/APAP (5/325) TAB PO PRN (09:00)
[2017-06-27] MEDS ORDERED: ACETAMINOPHEN 650 MG SUPP PR PRN (09:00)
[2017-06-27] MEDS ORDERED: ACETAMINOPHEN 325 MG TAB PO PRN (09:00)
[2017-06-27] MEDS: ENOXAPARIN 40 MG/0.4 ML SYG SC SCH (09:00)
[2017-06-27] MEDS ORDERED: ALBUTEROL/IPRATROPIUM (NEB) 3 ML AMP HHN PRN (09:00)
[2017-06-27] MEDS ORDERED: ONDANSETRON 4 MG INJ IV PRN (09:00)
[2017-06-27] MEDS: ALBUTEROL/IPRATROPIUM (NEB) 3 ML AMP HHN SCH ×4 (09:39→21:03)
--- NOTE | 2017-06-27 10:09 | HP ---
Date/Time of Note Date/Time of Note DATE: 06/27/17 TIME: 10:09 Assessment/Plan VTE Prophylaxis VTE Prophylaxis Intervention: LMWH Assessment/Plan Assessment/Plan This is a noncompliant male with known COPD came to ER wit worsening wheezing and short of breath 1.COPD Exacerbation with noncompliance. -[id number] and PRN OLIVER Neb, IV corticosteroids and oxygen to titrate per RT protocol 2. Hypercapnic respiratory failure secondary to #1. Treatment as above. 3. Leukocytosis, likely reactive versus steroid-induced versus superimposed pneumonia. -Start Levaquin prophylactically and monitor WBC daily. -Obtain sputum culture if possible 4.Mild hypernatremia, possibly dehydration. Will monitor. 5.History of right lung partial lobectomy. -No present issues 6.Multiple Substance abuse: Nicotine/meth/marijuana/alcohol -Counselled patient and recommend manager social media evaluation 7.Possible homelessness. -agricultural service worker and case management evaluation 8. Noncompliance. -Again patient was counseled on medication and primary care follow-up adherence. DVT prophylaxis: Lovenox Plan: Patient will be monitored in house. Continue current medical management and reassess patient in the morning. Patient will also have social work and case management evaluation. We will also review home medications and will adjust as indicated prior to discharge. Case discussed with DR.Patel HERNANDEZ/BRANDON Admit Date/Time Admit Date/Time Jun 27, 2017 at 07:49 Hx of Present Illness This is a 52-year-old disheveled male with a past medical history of advanced COPD, who is also noncompliant, current every day smoking, met/ marijuana abuse, left hernia repair, colon polyp, right lung partial lobectomy as a child, ADHD, who presented to the emergency room with a complaint of worsening shortness of breath associated with malaise over the past 3-4 days. Patient denied any fever, chills. He also reported intermittent cough with green productive sputum over the past several weeks. Patient also now homeless. Patient denied any chest pain, palpitation, loss of consciousness, dizziness, nausea, vomiting, abdominal pain, bowel or bladder irregularities. He also denied hemoptysis. Initial labs with PCO2 45.6, WBC 14,000 and sodium 147. Otherwise unremarkable. Patient also had heart rate 103 with blood pressure 168/102 in the emergency room. A chest x-ray was done and was negative for any acute cardiopulmonary disease. Patient was treated with bronchodilators and IV steroids in the emergency room with some improvement in his symptoms and was admitted for further evaluation. ROS See HPI PMH/Family/Social Past Medical History see HPI Past Surgical History see HPI Social History Current everyday smoker (1PPD), Marijuana use, alcohol abuse and methamphetamine abuse. Smoking Status: Current every day smoker Exam/Review of Systems Vital Signs Vitals Vital Signs Date Time Temp Pulse Resp B/P Pulse Ox O2 Delivery O2 Flow Rate FiO2 06/27/17 07:55 97.5 99 124/61 06/27/17 07:21 22 99 Mask 6.0 Exam Exam General: Disheveled female, not in any acute distress . HEENT: Normocephalic, Atraumatic, No laceration or hematoma; Eyes: PEERL, Conjunctiva clear, Anicteric sclera Neck: Supple without any lymphadenopathy, nontender, no JVD, no carotid bruits, trachea midline, no thyromegaly Cardiac: S1, S2 auscultated, regular rhythm and rate, no mumurs or gallop Pulmonary: Bilateral expiratory wheezing+ Normal respiratory effort. GI: Abdomen normal to inspection. Soft, non-tender, non- distended, no masses , no rebound tenderness or guarding. Bowel sounds active on all four quadrants Genitourinary: Deferred Extremities: No cyanosis, clubbing, or edema. Pulses [2+] bilaterally. Full ROM on all four extremities. No focal weakness appreciated. Neurologic: Alert to person, place, time, and situation. Affect appropriate, intact sensation. Skin: Abrasion on knee-healing,Clean,dry, and intact. No ecchymosis, no rashes, or lesions Labs Result Diagram: 06/27/17 0305 06/27/17 0305 Medications Medications Current Medications Gabapentin (Neurontin) 300 mg BID PO ; Start 06/27/17 at 09:00 Acetaminophen/ Hydrocodone Bitart ([place] (5/325)) 1 tab Q6H PRN PO PAIN; Start 06/27/17 at 09:00 Ondansetron HCl (Zofran Inj) 4 mg Q6H PRN IV NAUSEA AND/OR VOMITING; Start 06/27 at 09:00 Acetaminophen (Tylenol Tab) 650 mg Q6H PRN PO PAIN LEVEL 1-3 OR FEVER; Start at 09:00 Acetaminophen (Tylenol Supp) 650 mg Q6H PRN [place] PAIN LEVEL 1-3 OR FEVER; Start 06/27/17 at 09:00 Enoxaparin Sodium (Lovenox) 40 mg DAILY SC ; Start 06/27/17 at 09:00 Methylprednisolone Sodium Succinate (Solu-Medrol) 40 mg Q12 IV ; Start 06/27/17 at 09:00 GARY MARQUEZ NP Jun 27, 2017 10:09
[2017-06-27] MEDS: METHYLPREDNISOLONE 40 MG INJ IV SCH ×2 (10:16→21:19)
[2017-06-27] MEDS: GABAPENTIN 300 MG CAP PO SCH ×2 (10:16→21:19)
[2017-06-27] MEDS: LEVOFLOXACIN 500MG/D5W (PMX) 100 ML IVPB SCH (12:27)
[2017-06-27 14:13] VITALS: BP 120/59; RESP 18
[2017-06-27 20:37] VITALS: BP 121/60; RESP 20
[2017-06-28] MEDS: ALBUTEROL/IPRATROPIUM (NEB) 3 ML AMP HHN SCH ×6 (00:37→21:43)
[2017-06-28 02:00] VITALS: BP 119/66; RESP 20
[2017-06-28 05:34] LABS: ABNORMAL IP MESSAGE 1; BASOPHILS % 0.1 % (0.0-2.0); HEMATOCRIT 41.2 % (42.0-52.0); HEMOGLOBIN 13.5 g/dl (14.0-18.0); LYMPHOCYTES # 0.4 10^3/ul (0.8-2.9); MEAN CORPUSCULAR HEMOGLOBIN 30.1 pg (29.0-33.0); MEAN CORPUSCULAR HGB CONC 32.8 g/dl (32.0-37.0); MEAN CORPUSCULAR VOLUME 91.8 fl (82.0-101.0); MONOCYTE # 0.4 10^3/ul (0.3-0.9); MONOCYTES % 2.2 % (0.0-11.0); NEUTROPHIL # 17.3 10^3/ul (1.6-7.5); NEUTROPHILS % 95.3 % (39.0-77.0); PLATELET COUNT 219 10^3/UL (140-415); POSITIVE DIFF @See below; RED BLOOD COUNT 4.49 10^6/ul (4.70-6.10); RED CELL DISTRIBUTION WIDTH 12.7 % (11.5-14.5); WHITE BLOOD COUNT 18.2 10^3/ul (4.8-10.8)
[2017-06-28 05:56] LABS: ALBUMIN 3.6 g/dl (3.3-4.9); ALBUMIN/GLOBULIN RATIO 1.44; BILIRUBIN,INDIRECT 0.2 mg/dl (0-1.1); BILIRUBIN,TOTAL 0.2 mg/dl (0.2-1.3); CALCIUM 9.4 mg/dl (8.4-10.2); CHOL/HDL RATIO 2.5 RATIO; CREATININE 0.74 mg/dl (0.61-1.24); MAGNESIUM 1.9 mg/dl (1.7-2.5); PHOSPHORUS 3.8 mg/dl (2.5-4.9); POTASSIUM 4.1 mmol/L (3.5-5.1); TOTAL PROTEIN 6.1 g/dl (6.1-8.1)
[2017-06-28 07:05] LABS: THYROID STIMULATING HORMONE 0.187 MIU/L (0.465-4.680)
[2017-06-28] MEDS: METHYLPREDNISOLONE 40 MG INJ IV SCH (08:14)
[2017-06-28] MEDS: GABAPENTIN 300 MG CAP PO SCH ×2 (08:14→21:35)
[2017-06-28] MEDS: ENOXAPARIN 40 MG/0.4 ML SYG SC SCH (08:16)
[2017-06-28 08:33] VITALS: BP 135/69; RESP 20
[2017-06-28] MEDS: LEVOFLOXACIN 500MG/D5W (PMX) 100 ML IVPB SCH (12:28)
--- NOTE | 2017-06-28 12:41 | PN ---
Date/Time of Note Date/Time of Note DATE: 06/28/17 TIME: 12:41 Assessment/Plan VTE Prophylaxis VTE Prophylaxis Intervention: LMWH Lines/Catheters IV Catheter Type (from [facility] [facility] Urinary Cath still in place: No Assessment/Plan Chief Complaint/Hosp Course 1.COPD Exacerbation with noncompliance. Improved. -Continue [id number] and PRN OLIVER Neb, IV corticosteroids which will be tapered down and oxygen to titrate per RT protocol 2. Hypercapnic respiratory failure secondary to #1. Resolved. Treatment as above. 3. Leukocytosis, most likely steroid-induced. -Monitor. -F/u CS-Continue empiric abx for PNA prophylaxis 4.Mild hypernatremia, possibly dehydration. Resolved. 5.History of right lung partial lobectomy. -No present issues 6.Multiple Substance abuse: Nicotine/meth/marijuana/alcohol -Counselled patient and recommend social worker school evaluation-pending 7.Possible homelessness. -licensing worker and case management evaluation 8. Noncompliance. -Again patient was counseled on medication and primary care follow-up adherence. DVT prophylaxis: Lovenox Plan: Pending SW/CM involvement in homelessness. DC planning likely tomorrow. Case discussed with . Problems: Subjective 24 Hr Interval Summary Free Text/Dictation Patient with overall improvement in respiratory status. No shortness of breath or wheezing. Exam/Review of Systems Vital Signs Vitals Vital Signs Date Time Temp Pulse Resp B/P Pulse Ox O2 Delivery O2 Flow Rate FiO2 06/28/17 08:51 79 16 93 21 06/28/17 08:33 97.9 135/69 06/27/17 17:53 Nasal Cannula 06/27/17 07:21 6.0 Intake and Output 06/27/17 06/27/17 06/28/17 15:00 23:00 07:00 Intake Total 100 ml 980 ml 300 ml Output Total 500 ml Balance 100 ml 980 ml -200 ml Exam General: Disheveled female, not in any acute distress . HEENT: Normocephalic, Atraumatic, No laceration or hematoma; Eyes: PEERL, Conjunctiva clear, Anicteric sclera Neck: Supple without any lymphadenopathy, nontender, no JVD, no carotid bruits, trachea midline, no thyromegaly Cardiac: S1, S2 auscultated, regular rhythm and rate, no mumurs or gallop Pulmonary: Chest clear. Normal respiratory effort. GI: Abdomen normal to inspection. Soft, non-tender, non- distended, no masses , no rebound tenderness or guarding. Bowel sounds active on all four quadrants Genitourinary: Deferred Extremities: No cyanosis, clubbing, or edema. Pulses [2+] bilaterally. Full ROM on all four extremities. No focal weakness appreciated. Neurologic: Alert to person, place, time, and situation. Affect appropriate, intact sensation. Skin: Abrasion on knee-healing,Clean,dry, and intact. No ecchymosis, no rashes, or lesions Results Result Diagram: 06/28/17 0433 06/28/17 0433 Results 24 hrs Laboratory Tests Test 06/28/17 04:33 White Blood Count 18.2 #H Red Blood Count 4.49 L Hemoglobin 13.5 L Hematocrit 41.2 L Mean Corpuscular Volume 91.8 Mean Corpuscular Hemoglobin 30.1 Mean Corpuscular Hemoglobin Concent 32.8 Red Cell Distribution Width 12.7 Platelet Count 219 Mean Platelet Volume 11.0 H Neutrophils % 95.3 H Lymphocytes % 2.0 L Monocytes % 2.2 Eosinophils % 0.0 Basophils % 0.1 Nucleated Red Blood Cells % 0.0 Neutrophils # 17.3 H Lymphocytes # 0.4 L Monocytes # 0.4 Eosinophils # 0.0 Basophils # 0.0 Nucleated Red Blood Cells # 0.0 Sodium Level 143 Potassium Level 4.1 Chloride Level 104 Carbon Dioxide Level 26 Anion Gap 17 H Blood Urea Nitrogen 16 Creatinine 0.74 Glucose Level 124 Hemoglobin A1c 5.5 Calcium Level 9.4 Phosphorus Level 3.8 Magnesium Level 1.9 Total Bilirubin 0.2 Direct Bilirubin 0.00 Indirect Bilirubin 0.2 Aspartate Amino Transf (AST/SGOT) 33 Alanine Aminotransferase (ALT/SGPT) 28 Alkaline Phosphatase 88 Total Protein 6.1 # Albumin 3.6 # Globulin 2.50 Albumin/Globulin Ratio 1.44 Triglycerides Level 43 Cholesterol Level 143 LDL Cholesterol, Calculated 77 HDL Cholesterol 57 Cholesterol/HDL Ratio 2.5 Thyroid Stimulating Hormone (TSH) 0.187 L Medications Medications Current Medications Gabapentin (Neurontin) 300 mg BID PO Last administered on 06/28/17t 08:14; Admin Dose 300 MG; Start 06/27/17 at 09:00 Acetaminophen/ Hydrocodone Bitart ([place] (5/325)) 1 tab Q6H PRN PO PAIN; Start 06/27/17 at 09:00 Ondansetron HCl (Zofran Inj) 4 mg Q6H PRN IV NAUSEA AND/OR VOMITING; Start 06/27 at 09:00 Acetaminophen (Tylenol Tab) 650 mg Q6H PRN PO PAIN LEVEL 1-3 OR FEVER; Start at 09:00 Acetaminophen (Tylenol Supp) 650 mg Q6H PRN [place] PAIN LEVEL 1-3 OR FEVER; Start 06/27/17 at 09:00 Enoxaparin Sodium (Lovenox) 40 mg DAILY SC Last administered on 06/28/17 08:16 ; Admin Dose 40 MG; Start 06/27/17 at 09:00 Methylprednisolone Sodium Succinate 40 mg 40 mg Q12 IV Last administered on 06/28 08:14; Admin Dose 40 MG; Start 06/27/17 at 09:00 Levofloxacin/ Dextrose (Levaquin 500mg/ D5W 100 ml (Pmx)) 100 ml @ 100 mls/hr Q24H IVPB Last administered on 06/28/17 12:28; Admin Dose 100 MLS/HR; Start 06/27/17 at 11:30 GARY MARQUEZ NP Jun 28, 2017 12:41
[2017-06-28 14:57] VITALS: BP 120/60; RESP 22
[2017-06-28 19:55] VITALS: BP 131/66; RESP 18
[2017-06-29] MEDS: ALBUTEROL/IPRATROPIUM (NEB) 3 ML AMP HHN SCH ×4 (01:00→12:42)
[2017-06-29 02:20] VITALS: BP 111/58; RESP 16
[2017-06-29 06:49] LABS: BASOPHILS % 0.1 % (0.0-2.0); HEMOGLOBIN 14.4 g/dl (14.0-18.0); LYMPHOCYTES # 1.1 10^3/ul (0.8-2.9); LYMPHOCYTES % 7.3 % (15.0-51.0); MEAN CORPUSCULAR HEMOGLOBIN 29.9 pg (29.0-33.0); MEAN CORPUSCULAR HGB CONC 32.7 g/dl (32.0-37.0); MEAN CORPUSCULAR VOLUME 91.5 fl (82.0-101.0); MONOCYTE # 1.1 10^3/ul (0.3-0.9); NEUTROPHIL # 13.3 10^3/ul (1.6-7.5); NEUTROPHILS % 85.2 % (39.0-77.0); PLATELET COUNT 232 10^3/UL (140-415); RED BLOOD COUNT 4.81 10^6/ul (4.70-6.10); RED CELL DISTRIBUTION WIDTH 13.2 % (11.5-14.5); WHITE BLOOD COUNT 15.6 10^3/ul (4.8-10.8)
[2017-06-29 07:07] LABS: CREATININE 0.78 mg/dl (0.61-1.24); POTASSIUM 4.1 mmol/L (3.5-5.1)
[2017-06-29 07:54] VITALS: BP 123/79; RESP 20
[2017-06-29] MEDS: GABAPENTIN 300 MG CAP PO SCH (08:52)
[2017-06-29] MEDS: ENOXAPARIN 40 MG/0.4 ML SYG SC SCH (08:58)
[2017-06-29] MEDS ORDERED: METHYLPREDNISOLONE 40 MG INJ IV SCH (09:00)
--- NOTE | 2017-06-29 11:27 | PDOCDIS ---
Discharge Instructions CONDITION Patient Condition: Stable HOME CARE INSTRUCTIONS: Diet Instructions: Regular FOLLOW UP/APPOINTMENTS Follow-up Plan 1.Follow up with primary care physician in 1 week-Needs thyroid function repeated in 2-4 weeks If you don't have one please let someone know, we can give you resources that may help you pick one. You may also call your insurance company to assign one to you. Review your medication list with your nurse before leaving and if you need new prescriptions please let your nurse know. I may have made changes to your home medications or given you new prescriptions, please let your primary doctor know as well. Stay compliant with your medications and report any side effects to your PCP or pharmacist. Return to the ER if you have any concerns and cannot reach your doctors or call your insurance company, they usually have a nurse that can help you. 2. Call 911 or go to the nearest emergency room if experiencing loss of consciousness, dizziness, chest pain, shortness of breath, vomiting/abdominal pain, speech difficulties, motor weakness or any unusual symptoms. GARY MARQUEZ NP Jun 29, 2017 11:26
[2017-06-29] MEDS ORDERED: MUPIROCIN 2% 22 GM OINT TOP SCH (11:30)
[2017-06-29] MEDS ORDERED: PRED20TA PO (11:31)
[2017-06-29] MEDS ORDERED: MOME13HF INHALATION (11:31)
[2017-06-29] MEDS ORDERED: BACITUD TOP (11:35)
[2017-06-29] MEDS: LEVOFLOXACIN 500MG/D5W (PMX) 100 ML IVPB SCH (13:01)
--- NOTE | 2017-06-29 14:17 | DS ---
Date/Time of Note Date/Time of Note DATE: 06/29/17 TIME: 14:09 Discharge Summary Admission/Discharge Info Admit Date/Time Jun 28, 2017 at 06:30 Discharge Date/Time Discharge Diagnosis 1.COPD Exacerbation with noncompliance. Stable 2. Hypercapnic respiratory failure secondary to #1. Resolved. 3. Leukocytosis, most likely steroid-induced. Stable 4.Mild hypernatremia, possibly dehydration. Resolved. 5.History of right lung partial lobectomy. 6.Multiple Substance abuse: Nicotine/meth/marijuana/alcohol 7.Possible homelessness. 8. Noncompliance. Patient Condition: Stable Procedures 06/27/2017. Chest x-ray. No acute findings Hospital Course This is a 52-year-old homeless, disheveled male, with a past medical history of advanced COPD, who is also noncompliant, current every day smoking, met/marijuana abuse, left hernia repair, colon polyp, right lung partial lobectomy as a child, ADHD, who presented to the emergency room with worsening shortness of breath associated with generalized weakness for the past 3-4 days. Patient did not have any fever or chills. He had intermittent productive cough. Otherwise, patient did not have any other constitutional symptoms. In the emergency room patient had elevated WBC 14,000 with a PCO2 45.6 and sodium 147. His blood pressure also was elevated at 168/102. Patient was treated with bronchodilators, IV steroids and was admitted. Patient was started on a diet. Home medications resumed. park worker consult was called. Patient was started on [id number] bronchodilators, IV corticosteroids and oxygen for COPD exacerbation causing symptoms. With steroids, his leukocytosis was trending up and was monitored. He was also given Levaquin prophylactically. Blood culture was negative. Chest x-ray without any pneumonia process. WBC trended down as steroids are tapered down. Wheezing and shortness of breath was completely resolved with bronchodilators and low-dose steroids. Patient was able to tolerate diet and activities well. Patient did not have any further coughing. He was evaluated by oncology social worker and resources with given for homelessness and substance abuse. Patient refused fpc assistance and wanted to go to straight with his hand. Patient was repeatedly counseled on substance abuse cessation. At this time, there is no further inpatient workup indicated. Patient is medically stable for discharge. Disposition: Patient will be discharged home today. He was instructed to follow -up with his primary care physician. Patient was given prescription. Approximately 60 minutes was spent in coordinating the discharge on this patient. Condition at time of discharge is stable. Case discussed with Dr. Howell Lawrence Meds Active Scripts Bacitracin* (Bacitracin Oint (UD)*) 1 Applic Oint, 1 APPLIC TOP BID for 5 Days, #1 TUB APPLY TO both nares Prov:MARQUEZGARY V. ACCOUNT SERVICE ASSOCIATE 06/29/17 Prednisone* (Prednisone*) 20 Mg Tab, 20 MG PO DAILY for 4 Days, #4 TAB 20 mg po dailyx2 days then 10mg po dailyx2 days then STOP Prov:MARQUEZBRIELLEA V. ACCOUNT SERVICE ASSOCIATE 06/29/17 Mometasone-Formoterol (Dulera) 200-5 Mcg/Inh - 13 Gm Hfa.aer.ad, 2 PUFFS INHALATION BID, #1 INHALER Prov:BRIELLE MARQUEZA V. ACCOUNT SERVICE ASSOCIATE 06/29/17 Tramadol HCl (Tramadol HCl) 50 Mg Tablet, 50 MG PO Q4 Y for PAIN, #20 TAB Prov:CATALINA MENENDEZ PA-C 04/27/17 Albuterol Sulfate* (Proair HFA*) 8.5 Gm Hfa.aer.ad, 2 PUFF INH Q6H Y for WHEEZING AND SOB, #1 INHALER Prov:SOBEIDA BACA MD 02/07/17 Reported Medications Gabapentin* (Gabapentin*) 300 Mg Capsule, 300 MG PO BID, #60 CAP 06/27/17 Discontinued Reported Medications [Medical Marijuana] No Conflict Check 10/23/10 Discontinued Scripts Ibuprofen* (Ibuprofen*) 600 Mg Tablet, 600 MG PO Q8 for PAIN AND/OR INFLAMMATION , #30 TAB Prov:SOBEIDA BACA MD 06/08/17 Hydrocodone/Acetaminophen ([place] 5-325 Tablet) 1 Each Tablet, 1 TAB PO Q6H Y for PAIN, #15 TAB Prov:CATALINA MENENDEZ PA-C 04/27/17 Follow-up Plan HOME CARE INSTRUCTIONS: Diet Instructions: Regular FOLLOW UP/APPOINTMENTS Follow-up Plan 1.Follow up with primary care physician in 1 week-Needs thyroid function repeated in 2-4 weeks If you don't have one please let someone know, we can give you resources that may help you pick one. You may also call your insurance company to assign one to you. Review your medication list with your nurse before leaving and if you need new prescriptions please let your nurse know. I may have made changes to your home medications or given you new prescriptions, please let your primary doctor know as well. Stay compliant with your medications and report any side effects to your PCP or pharmacist. Return to the ER if you have any concerns and cannot reach your doctors or call your insurance company, they usually have a nurse that can help you. 2. Call 911 or go to the nearest emergency room if experiencing loss of consciousness, dizziness, chest pain, shortness of breath, vomiting/abdominal pain, speech difficulties, motor weakness or any unusual symptoms. Primary Care Provider Blaze Aceves Pending Labs Laboratory Tests Test 06/29/17 05:55 White Blood Count 15.610^3/ul (4.8-10.8) Red Blood Count 4.8110^6/ul (4.70-6.10) Hemoglobin 14.4g/dl (14.0-18.0) Hematocrit 44.0% (42.0-52.0) Mean Corpuscular Volume 91.5fl (82.0-101.0) Mean Corpuscular Hemoglobin 29.9pg (29.0-33.0) Mean Corpuscular Hemoglobin Concent 32.7g/dl (32.0-37.0) Red Cell Distribution Width 13.2% (11.5-14.5) Platelet Count 98325^3/UL (140-415) Mean Platelet Volume 11.0fl (7.4-10.4) Neutrophils % 85.2% (39.0-77.0) Lymphocytes % 7.3% (15.0-51.0) Monocytes % 7.0% (0.0-11.0) Eosinophils % 0.0% (0.0-7.0) Basophils % 0.1% (0.0-2.0) Nucleated Red Blood Cells % 0.0/100WBC (0.0-0.0) Neutrophils # 13.310^3/ul (1.6-7.5) Lymphocytes # 1.110^3/ul (0.8-2.9) Monocytes # 1.110^3/ul (0.3-0.9) Eosinophils # 0.010^3/ul (0.0-0.5) Basophils # 0.010^3/ul (0.0-0.1) Nucleated Red Blood Cells # 0.010^3/ul (0.0-0.0) Sodium Level 142mmol/L (135-144) Potassium Level 4.1mmol/L (3.5-5.1) Chloride Level 103mmol/L (97-110) Carbon Dioxide Level 28mmol/L (21-31) Anion Gap 15 (8-16) Blood Urea Nitrogen 18mg/dl (7-20) Creatinine 0.78mg/dl (0.61-1.24) Glucose Level 78mg/dl (70-220) Calcium Level 9.0mg/dl (8.4-10.2) Magnesium Level 2.0mg/dl (1.7-2.5) Free Thyroxine 0.75ng/dl (0.64-1.79) GARY MARQUEZ NP Jun 29, 2017 14:16
[2017-06-29 16:51] LABS: FREE T3 3.3 pg/ml (2.77-5.27)
[2017-06-29 17:05] LABS: TRIIODOTHYRONINE 0.97 ng/ml (0.97-1.69)
== END 2017-06-29 15:22 | disposition home or self-care (01) | DRG 190 ==
LOC: E/R 02:39 → PP2 07:49 → OBSVTOIN 06-28 06:30
PROVIDERS: ADMIT Family Medicine; ATTEND Family Medicine
DX: J44.1 Chronic obstructive pulmonary disease with (acute) exacerbation (principal); J96.92 Respiratory failure, unspecified with hypercapnia; E87.0 Hyperosmolality and hypernatremia; R05 Cough; F17.200 Nicotine dependence, unspecified, uncomplicated; F12.10 Cannabis abuse, uncomplicated; F10.10 Alcohol abuse, uncomplicated; Z59.0 Homelessness; Z91.19 Patient's noncompliance with other medical treatment and regimen; Z90.2 Acquired absence of lung [part of]
CPT/HCPCS: 36415; 36600; 71010; 80048; 80053; 80061; 82803; 83036; 83735; 83880; 84100; 84439; 84443; 84479; 84480; 84481; 84484; 85025; 85610; 85730; 87040; 87081; 93005; 94640; 94644; 94664; 96374; G0378; J1650; J1956; J2920; J2930